=== PATIENT | male | born 1955 | race Caucasian/White ===

== ENCOUNTER → 2017-10-08 09:25 | Outpatient (CLI) | payer OTHER, SELFPAY ==
--- NOTE | 2017-10-08 | DI.CT.S_ITS ---
PROCEDURE: CT UE LT WO CON INDICATIONS: CHRONIC LEFT SHOULDER PAIN TECHNIQUE: Noncontrast 1-1.5 mm thick sections acquired from the acromioclavicular joint to the inferior scapula, with coronal and sagittal reformatting. COMPARISON: None. FINDINGS: Image quality: Excellent. Bones: There are is moderate to severe glenohumeral joint space narrowing with extensive subchondral sclerosis and cystic changes. There is prominent osteophytosis. There is slight superior migration of the humeral head with respect to the glenoid. There is a small joint body inferior to the medial humeral head measuring approximately 5 mm. There is retroversion of the glenoid measuring approximately -15?. There is mild to moderate acromioclavicular joint degeneration. Visualized ribs appear intact. Soft tissues: There is a cystic lesion measuring approximately 2.8 x 2.6 x 2.9 cm in the region of the spinoglenoid notch with associated smooth erosion of the adjacent scapula. The rotator cuff appears grossly intact. There is subtle minimal fatty atrophy of the infraspinatus and teres minor muscles. No fatty atrophy of the supraspinatus or subscapularis. The deltoid appears within normal limits without atrophy. No glenohumeral joint effusion. Visualized left lung demonstrates mild emphysematous changes. IMPRESSION: 1. Moderate to severe osteoarthritic changes of the glenohumeral joint. 2. Glenoid retroversion of approximately -15?. 3. Large cystic lesion in the region of the spinoglenoid notch compatible with a ganglion cyst or paralabral cyst. 4. Minimal fatty atrophy of the infraspinatus may reflect associated mass effect on the suprascapular nerve by the cyst. 5. 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 Dictated by: Jorge Pulliam M.D. on 10/08/2017 at 16:25 Approved by: Jorge Pulliam M.D. on 10/08/2017 at 16:36
== END ==
PROVIDERS: PCP Family Medicine; Visit Provider Orthopaedic Surgery
DX: M19.012 Primary osteoarthritis, left shoulder (principal); M25.512 Pain in left shoulder; G89.29 Other chronic pain
CPT/HCPCS: 73200

== ENCOUNTER 2017-12-08 06:14 | Inpatient (IN) | payer OTHER, SELFPAY ==
[2017-11-26 12:50] VITALS: BMI 34.3
[2017-12-07 11:20] VITALS: BP 103/62; PULSE 116; RESP 14; TEMP 36.3; O2SAT 96
[2017-12-08] VITALS (18 sets, daily range): BP systolic 85–137; BP diastolic 58–86; PULSE 67–127; RESP 10–20; TEMP 35.9–37.1; O2SAT 89–97; BMI 33.5
--- NOTE | 2017-12-08 06:32 | DI.RAD.S_ITS ---
PROCEDURE: XR SHOULDER LT MIN 2V INDICATIONS: prosthesis placement TECHNIQUE: Single AP view of the shoulder were acquired. COMPARISON: None. FINDINGS: Bones: Patient is status post left shoulder arthroplasty. Alignment of the shoulder is anatomic. No gross fracture or dislocation. Soft tissues: No suspicious soft tissue calcifications. IMPRESSION: Post left shoulder arthroplasty with anatomic shoulder alignment. Dictated by: Calvin Perez M.D. on 12/08/2017 at 10:40 Approved by: Calvin Perez M.D. on 12/08/2017 at 10:43
[2017-12-08] MEDS: ACETAMINOPHEN 325 MG TABLET 975 MG PO ×3 (06:51→20:49)
[2017-12-08] MEDS: PREGABALIN 75 MG CAPSULE PO (06:51)
[2017-12-08] MEDS: LACTATED RINGERS 1,000 ML 42 ML IV ×2 (07:07→09:51)
[2017-12-08] MEDS: MIDAZOLAM 2 MG/2 ML VIAL IV (07:33)
[2017-12-08] MEDS: fentaNYL 100 MCG/2 ML INJ 50 MCG IV (07:38)
--- NOTE | 2017-12-08 07:50 | PM.PREOP ---
Pre-operative Note Interval Note Pre-op Check: Yes History & Physical Reviewed by Physician and Yes Exam Performed Changes: No
--- NOTE | 2017-12-08 07:53 | P.OP_ITS ---
Operative Date/Time/Diagnoses Date of procedure: 12/08/17 Time of procedure: 10:10 Pre-op diagnosis: Left shoulder osteoarthritis Post-op diagnosis: same Procedure & Clinicians Procedure: Left total shoulder replacement Same procedure as scheduled: Yes Indications: The patient has had progressively worsening left shoulder pain with radiographic changes consistent with arthritis. Non-operative management has failed and the patient has requested total shoulder replacement. The risks, benefits and alternatives to surgery were discussed with the patient prior to proceeding. Risks discussed included, but were not limited to, failure to relieve pain, stiffness, infection, nerve damage, deep venous thrombosis, pulmonary embolism, stroke, coma, heart attack, permanent paralysis and , as well as the potential need for eventual revision of the prosthetic. Surgeon: Jacob oMntalvo Lead Systems Analyst: Gadeil Reilly Click Yes if Unassisted: No Anesthesia Type: General, Peripheral nerve block and Local Operative Notes Findings: Severe osteoarthritis with type B 2 glenoid and a large paralabral cyst posteriorly which was decompressed. Closure Type: primary Specimen(s): none sent Implants & Drains: Implants used in this procedure were manufactured by the [employer] and included an Altivate short stem shoulder system with a size 16 short humeral stem, a 50 mm x 20 mm neutral humeral head with a neutral neck and a 50 mm all polyethylene pegged E+ glenoid. Applied: drain(s) and implant(s) Estimated Blood Loss (mL): 200 Blood products transfused: none Procedure in detail: The patient was seen in the pre-operative area, where the patient identified the left shoulder as the operative site and this was marked with my initials. The patient received pre-operative antibiotics, underwent an interscalene block, and was taken to the operating room and placed on the operative table in the supine position. After satisfactory anesthesia, a full ? time out? was performed. The patient was repositioned in the ?beach chair? position using a dedicated positioner. All pressure points were well padded, and the knees were slightly bent to prevent tension on the sciatic nerves. The left arm was prepared from the fingers to the base of the neck with ChloroPrep in the usual fashion and draped through sterile drapes. An approximately 15 cm incision was created, starting at the clavicle above the coracoid process and extended towards the deltoid insertion. The deltopectoral interval was used to access the shoulder. Despite careful searching, the cephalic vein was not evident. A self retaining retractor was placed. The upper centimeter of the pectoralis major tendon was released. The ?three sisters? were identified and cauterized. The axillary nerve was palpated and protected throughout the case. The biceps was released from its groove and tenodesed over the top of the pectoralis major tendon. The subscapularis was released from the lesser tuberosity with a subscapularis peel and tagged for later repair. The shoulder was dislocated and a cutting guide was used for the proximal humeral osteotomy in 30 degrees of retroversion. A starter reamer was used followed by the cylindrical reamers. This continued in larger sizes until cortical bite was achieved. Sequential broaching was then performed until a line to line fit with the reamer occurred. A proximal humeral protector was then placed. We then placed retractors to access the glenoid. The subscapularis was released with a ?360 degree release? with care being taken to protect the axillary nerve with the inferior portion of this procedure. The remnant of labrum and biceps stump were removed. The patient's specific glenoid aimer was used, and the guide pin placed. The glenoid was appropriately reamed. The guide for the peripheral holes was used and the center hole enlarged. The trial glenoid was placed with good stability. We then cemented the final implant into place after irrigating the peg holes and drying them with thrombin-soaked Gelfoam. We returned our attention to the humerus, a trial humeral head was applied and a trial reduction performed. Stability was checked with 50% posterior translation with spontaneous reduction, 45? external rotation at the side with the subscapularis held in the repaired position and 70? of internal rotation in the ?scarecrow position?. This was felt to be satisfactory and the appropriate implants were opened. Five holes were drilled along the humeral osteotomy and #2 TiCron sutures placed for eventual subscapularis repair. The humeral prosthetic was impacted into the humerus. The humeral head was applied when the stem was still slightly proud and impacted to both seat the head and fully seat the stem. The joint was relocated one final time. The joint was irrigated and the subscapularis repaired to the previously placed sutures using Len-Mark sutures. The top of the subscapularis was closed to the leading edge of the supraspinatus with a figure of 8 #2 TiCron to close the rotator interval. A deep drain was placed and brought out supero-laterally. The deltopectoral interval was closed with interrupted 0 Vicryl. The subcutaneous layer was closed with 3-0 Vicryl, and the skin with a running 3-0 V-Lock suture and SteriStrips. Additional 0.5% Marcaine was injected into the subcutaneous tissues for postoperative pain control. An Aquacel Ag dressing was applied, the patient?s arm was placed in a sling, and the patient was taken to recovery having tolerated the procedure well. Complications: none Condition: stable Disposition: PACU Plan for aftercare: The patient will be maintained on a standard total shoulder replacement protocol with passive range of motion limited to 90 degrees forward flexion, 0 degrees external rotation at the side, 0 degrees abduction and internal rotation to the body. The patient will receive aspirin and sequential compression devices for DVT prophylaxis. The patient will be discharged home when safe for the home environment, likely tomorrow.
--- NOTE | 2017-12-08 08:00 | SUR.PREOP ---
Block start time [0733] . Monitoring initiated and maintained throughout procedure. Oxygen and medications given per anesthesiologist instructions. Patient remained stable throughout procedure, no adverse reactions noted. Block end time [0752].
--- NOTE | 2017-12-08 08:00 | SUR.PREOP ---
SPOKE WITH MD REGARDING CURRENT ORDER FOR ANCEF RELATED TO PT ALLERGY TO AMPICILLIN. PER MD PRO OK TO CONTINUE WITH CURRENT ORDER OF ANCEF. COMMUNICATED THIS WITH CIRCULATING RN. CELEBREX NOT GIVEN PER PT ALLERGY, ALSO VERIFIED WITH MD. PT TAKEN DIRECTLY INTO THE OR AFTER COMPLETION OF BLOCK. PT TALKING TO STAFF DURING TRANSPORT TO OR.
[2017-12-08] MEDS: CEFAZOLIN 2 GM/100 ML FROZ.PIGGY IV ×2 (08:10→16:24)
--- NOTE | 2017-12-08 08:37 | SUR.OPER ---
Beach chair with Schlein shoulder positioner. Lower body on padded OR bed. Head in foam padded head cradle, secured with straps. Non-operative arm secured <90 degrees abduction. Pillow under knees. Safety belt at thigh. Cloth tape over blanket over lower legs. Gel pad to heels.
[2017-12-08] MEDS: THROMBIN (BOVINE) 5,000 UNIT VIAL 5000 UNIT TOP (08:49)
[2017-12-08] MEDS: BUPIVACAINE 0.5% W/ EPI (PF) VIAL 30 ML INJ (09:24)
[2017-12-08] MEDS: LACTATED RINGERS 1,000 ML 125 ML IV (12:07)
--- NOTE | 2017-12-08 12:24 | PC.NURSE ---
Addendum entered by Leslie Zuniga R.N. 12/08/17 15:23: spoke with marquita in icu pt HR afib rate 120-130's spoke with Dr Streeter notifed of pt HR and placed on tele he requested hospitalist number no further orders at this time. Original Note: Addendum entered by Leslie Zuniga R.N. 12/08/17 14:41: pt continues to have HR 115-125 while at rest. called down to pacu attempt to get ahold of MD or PA. placed on tele at this time. Original Note: Addendum entered by Leslie Zuniga R.N. 12/08/17 13:56: pt got up ambulated to bathroom steady on feet, denies any SOB oxygen 94% RA at this time HR 120, denies chest palpations. Call light within reach and bed alarm for safety Original Note: Addendum entered by Leslie Zuniga R.N. 12/08/17 13:31: Pt sitting up in bed c/o feeling warm states he runs a little warm fan and cool washcloth provided. states he starting to have dull pain to left shoulder but hand and fingers he can feel dull touch, warm to touch and strong pulse. HRR tach 115-123 denies any chest pain or SOB at this time. Call light within reach. Original Note: Day Shift Received Pt from pacu at 1120 via bed is A&Ox3 able to communicate needs. denies any pain or discomfort. Is able to wiggle fingers and feel dull sensation, strong pulse and hand and arm are warm to touch, has aqucel dressing that is CDI and hemo vac that is compressed. ice pack to left shoulder. Denies any nausea and tolerating liquids. LR @ 125ml/hr. HRR denies chest pain, sob and H/A. RT set up home CPAP at bedside, sats 95%2l via cannula. Oriented to room and call light.
--- NOTE | 2017-12-08 14:03 | PT.IPTN ---
Current Diagnoses Other specified mononeuropathies of left upper limb (12/08/17) Primary osteoarthritis, left shoulder (12/08/17) Ganglion, unspecified site (12/08/17) Surgery Performed Operation Date: 12/08/17 07:45 Actual Procedures p Total Shoulder Arthroplasty(Left) - Jacob Montalvo MD Physical Therapy Treatment Note Subjective Physical Therapy Visit Type Type Administrative Note Notes Pt is currently tachycardic and hot, RN requests PT hold the eval right now. Will check back later this afternoon or first thing in the morning. OT eval was also generated via the DCP.
--- NOTE | 2017-12-08 14:06 | SUR.PHASEI ---
pt arrived , bp low, treated with iv fluids, pt asymtomatic, drinking juice, diaphoretic, anesthesia stating he was like this pre op. pt awoke, followed commands, dressing to l shoulder c/d/i, reddish area r of dressing on chest, looks like a bruise but pt stated it has been there a long time.. Brendon to bedside several times to check on pt. pt transfered up to room and left in stable condition.
--- NOTE | 2017-12-08 16:02 | PC.NURSE ---
Addendum entered by Adri North R.N. 12/08/17 16:39: Dr. Mcmillan at bedside with patient, new orders obtained. RT notified regarding EKG. HR decreased spontaneously to mid 50's while EKG in process. GAME TRAPPER notified this RN regarding heart rate pause 5.81 seconds, Dr. Mcmillan made aware. Patient continue awake, reports mild SOB but improved. No chest pain or dizziness. VS 111/67 HR 62 Original Note: Ayla shift note: Patient sleeping between care, arouses easily. HR continues in 120's, DARLENE Reilly consulted with Dr. Mcmillan for medical management. Awaiting for Dr. Mcmillan to see the patient for further orders. Patient asymptomatic, no dizziness, or SOB. No c/o pain or discomfort. Normotensive. O2 sat 95% on RA. CMS intact to LLE. Call light within reach.
--- NOTE | 2017-12-08 16:43 | P.CONS_ITS ---
History of Present Illness Date Patient Seen: 12/08/17 Chief complaint: left total shoulder arthroplasty [id number] Reason for consult: Tachycardia Narrative: Patient is a 62 y/o male with a history of Paroxysmal atrial fibrillation present for 5 years who is s/p left shoulder surgery. Patient took his usual flecanide and metoprolol. Post operatively patient was noted to be tachycardic with a heart rate of 120's and I was asked to assist with management of his rhythm. The patient reports he has been on medical treatment for Paroxsymal atrial fibrillation for years. He was cardioverted previously but returned to atrial fibrillation. He is not always aware of his atrial fibrillation. He currently has no sensation of palpitations. Patient reports shortness of breath with activity. He denies orthopnea or lower extremity edema. He feels short of breath currently. He denies chest pain, palpitations, fever, cough, or prior illness. 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) Syncope (Acute) Surgical History History of cardiac cath (Acute ~03/06/16) History of hernia repair (Acute) History of knee surgery (Acute) History of vasectomy (Acute) Social History household members: spouse Smoking Status: Current every day smoker alcohol intake: current Meds Home Medications Medication Instructions Recorded Confirmed Type aspirin 325 mg PO DAILY 11/26/17 12/08/17 History flecainide 100 mg PO BID 11/26/17 12/08/17 History lisinopril 10 mg PO DAILY 11/26/17 12/08/17 History metoprolol succinate [Toprol XL] 25 mg PO DAILY 11/26/17 12/08/17 History simvastatin 20 mg PO DAILY 11/26/17 12/08/17 History vit C-vit [id number] 1 cap PO DAILY 11/26/17 12/08/17 History [Ocuvite] Allergies Allergy/AdvReac Type Severity Reaction Status Date / Time ampicillin Allergy Itchy Verified 12/08/17 06:46 celecoxib AdvReac Intermediate Stomach Verified 12/08/17 06:46 upset Review of Systems Review of Systems All systems reviewed & are unremarkable except as noted in HPI and below Exam Vital Signs (past 8 hours): - 12/08/17 10:16 12/08/17 10:21 12/08/17 10:26 Temperature 97.0 F L Pulse Rate 110 H 102 H 111 H Respiratory Rate 20 13 16 Blood Pressure 109/65 92/69 85/62 L Pulse Oximetry 89 L 97 95 12/08/17 10:29 12/08/17 10:31 12/08/17 10:41 Temperature Pulse Rate 111 H 110 H 111 H Respiratory Rate 16 14 12 Blood Pressure 95/63 95/62 91/67 Pulse Oximetry 95 94 95 12/08/17 10:51 12/08/17 10:56 12/08/17 11:06 Temperature 97.6 F Pulse Rate 105 H 110 H 109 H Respiratory Rate 10 L 12 11 L Blood Pressure 100/65 90/65 95/62 Pulse Oximetry 94 95 95 12/08/17 11:50 12/08/17 12:20 12/08/17 13:20 Temperature 97.4 F L 97.1 F L 96.9 F L Pulse Rate 120 H 123 H 123 H Respiratory Rate 16 15 16 Blood Pressure 95/65 104/58 L 114/82 Pulse Oximetry 93 94 94 12/08/17 14:25 12/08/17 16:10 12/08/17 16:37 Temperature 96.7 F L 97.0 F L Pulse Rate 127 H 127 H 127 H Respiratory Rate 17 16 Blood Pressure 117/85 105/69 107/77 Pulse Oximetry 94 96 Oxygen Delivery Method Nasal Cannula Oxygen Flow Rate 0 Narrative Exam Narrative: Pleasant male in no acute distress HEENT: NC/AT, EOMI, Oropharynx clear neck supple Lungs: decreased breath sounds but clear to auscultation CV: Tachycardic, irregularly irregular, nl Sl S2 Abd: soft/ non tender/ non distended Ext: no lower extremity edema. Left arm in a sling, drain in place Neuro: non focal Psych: no delusions or hallucinations Skin: on rashes Assessment & Plan (1) Afib: Problem details: Patient initially had a heart rate of 123, Afib, his heart rate is now 57 Current visit: Yes Status: Acute (2) Hypertension: Problem details: blood pressure well controlled Current visit: Yes Status: Acute (3) Obstructive sleep apnea: Problem details: continue CPAP Current visit: Yes Status: Acute (4) Near syncope: Problem details: Patient had a 5 second pause...will continue to follow closely. Will obtain 2 D echo, will hold metoprolol for now. Continue flecanide Current visit: Yes Status: Acute Plan: Assessment/Plan Narrative: As above. Thank You for the consultation, I will continue to follow with you.
--- NOTE | 2017-12-08 16:58 | PT.IPTN ---
Current Diagnoses Obstructive sleep apnea (adult) (pediatric) (12/08/17) Other specified mononeuropathies of left upper limb (12/08/17) Essential (primary) hypertension (12/08/17) Unspecified atrial fibrillation (12/08/17) Primary osteoarthritis, left shoulder (12/08/17) Ganglion, unspecified site (12/08/17) Syncope and collapse (12/08/17) Surgery Performed Operation Date: 12/08/17 07:45 Actual Procedures p Total Shoulder Arthroplasty(Left) - Jacob Montalvo MD Physical Therapy Treatment Note M3 PT-IP Subjective Start: 12/08/17 14:01 Freq: NEEDED Status: Active Protocol: Document 12/08/17 16:56 EA (Rec: 12/08/17 16:57 EA [id number]) Subjective Physical Therapy Visit Type Type Patient Unavailable Notes Patient was checked at 1645 and nurse in charged stated that he is not ready yet due to unstable vital signs.
[2017-12-08 18:31] LABS: Add Manual Diff / Slide Review NO; Basophils Percent Auto 0.1 % (0-2); Hematocrit 43.8 % (41-53); Hemoglobin 14.9 g/dL (13.5-17.5); Lymphocytes Percent Auto 5.7 % (25-40); Mean Corpuscular Hemoglobin 31.7 PG (26-34); Mean Corpuscular Volume 93.1 fL (80-100); Neutrophils Absolute Auto 15500 /uL (3000-5900); Neutrophils Percent Auto 91.2 % (50-75); Platelet Count 272 X10^3/uL (150-400); Red Cell Distribution Width 13.5 % (11.6-14.8)
[2017-12-08 18:47] LABS: Alanine Aminotransferase 31 IU/L (21-72); Albumin 3.9 g/dL (3.5-5.0); Albumin Globulin Ratio 1.4 (1.0-2.8); Alkaline Phosphatase 62 U/L (38-126); Aspartate Aminotransferase 31 IU/L (17-59); BUN Creatinine Ratio 26.4 (6-22); Bilirubin Total 0.5 mg/dL (0.2-1.3); Blood Urea Nitrogen 29 mg/dL (9-20); Calcium 9.6 mg/dL (8.4-10.2); Carbon Dioxide 25 mmol/L (22-32); Chloride 103 mmol/L (98-107); Creatine Kinase 309 U/L (55-170); Estimated Glomerular Filt Rate > 60.0 mL/min (>60); Globulin 2.8 g/dL (1.7-4.1); Glucose 134 mg/dL (80-110); HEMOLYSIS < 15 (0-50); Potassium 4.4 mmol/L (3.4-5.1); Sodium 140 mmol/L (137-145); Total Protein 6.7 g/dL (6.3-8.2)
[2017-12-08 19:02] LABS: CKMB % Relative Index 2.1 % (1.5-5.0); Creatine Kinase MB 6.36 ng/mL (<2.37)
[2017-12-08 19:05] LABS: Troponin I < 0.012 ng/mL (0.01-0.034)
[2017-12-08] MEDS: FLECAINIDE 100 MG TABLET PO (20:49)
[2017-12-08] MEDS: DOCUSATE 100 MG CAPSULE PO (20:49)
[2017-12-09] VITALS: O2SAT 96
[2017-12-09] MEDS: CEFAZOLIN 2 GM/100 ML FROZ.PIGGY IV (00:29)
[2017-12-09 00:47] VITALS: BP 131/77; PULSE 67; RESP 20; TEMP 36.6; O2SAT 96
[2017-12-09] MEDS: OXYCODONE IR 5 MG TABLET PO ×4 (05:02→12:49)
[2017-12-09 05:10] VITALS: BP 143/89; PULSE 68; RESP 18; TEMP 36.7; O2SAT 99
[2017-12-09 07:06] LABS: Hematocrit 41.7 % (41-53); Hemoglobin 14.2 g/dL (13.5-17.5)
[2017-12-09 07:30] VITALS: BP 159/81; PULSE 71; RESP 18; TEMP 36.7; O2SAT 98
[2017-12-09] MEDS: HYDROMORPHONE 2 MG INJ 0.5 MG IV (07:48)
--- NOTE | 2017-12-09 07:54 | PM.DS.1 ---
History of Present Illness Date Patient Seen: 12/09/17 Time Patient Seen: 07:54 Chief complaint: left total shoulder arthroplasty [id number] Narrative: History of present illness and physical examination is contained in the chart previously completed note. Please refer to that note for this information. Discharge Providers Date of admission: 12/08/17 06:14 Primary care physician: Jermain Joseph MD Consults: 12/08/17 11:27 Consult to Discharge Planning Routine Comment: Consult to Physical Therapy Evaluate & Treat Comment: PROM 90 FF, ER 0, IR to body, Abd 0. Pendulums OK Physician Instructions: Evaluate and Treat 12/08/17 13:35 Consult to Occupational Therapy Evaluate & Treat Comment: Physician Instructions: Evaluate and treat Discharge provider: Jacob Montalvo MD Discharge Date: 12/09/17 Summary Discharge Diagnosis: 1. Left shoulder osteoarthritis 2. Cardiac arrhythmia Hospital Course: The patient was admitted to the hospital and taken directly to the operating room on December 08, 2017 where he underwent a left total shoulder replacement without complications. During his recovery phase he was noted to be tachycardic and given his cardiac history and medical consultation was obtained. He was monitored on telemetry. He was stable on postoperative day 1 and felt to be ready for discharge home. Status at Discharge Cognitive/behavioral status at discharge: Baseline Functional status at discharge: independent ambulation Overall status at discharge: patient is progressing back to baseline Time Spent with Patient Less than 30 minutes Exam Vital Signs (past 8 hours): - 12/09/17 00:00 12/09/17 00:47 12/09/17 05:10 Temperature 97.9 F 98.1 F Pulse Rate 67 68 Respiratory Rate 20 18 Blood Pressure 131/77 143/89 H Pulse Oximetry 96 96 99 Oxygen Delivery Method Room Air,CPAP Oxygen Flow Rate 0 Narrative Exam Narrative: Left shoulder wound is dressed with minimal drainage on the bandage. Light touch is intact in the radial, ulnar, median, musculocutaneous and axillary nerve distributions. He can extend his thumb, abduct his thumb, abduct his fingers. He can fire his biceps and deltoid. Objective Labs Result Diagrams: 12/09/17 06:55 12/08/17 17:28 Labs: Laboratory Results - last 24 hr 12/08/17 12/08/17 12/09/17 17:28 17:28 06:55 WBC 17.0 H RBC 4.70 Hgb 14.9 14.2 Hct 43.8 41.7 MCV 93.1 MCH 31.7 MCHC 34.0 RDW 13.5 Plt Count 272 Neut % (Auto) 91.2 H Lymph % (Auto) 5.7 L Mcduffie % (Auto) 3.0 Eos % (Auto) 0.0 L Baso % (Auto) 0.1 Neut # (Auto) 80374 H Sodium 140 Potassium 4.4 Chloride 103 Carbon Dioxide 25 BUN 29 H Creatinine 1.10 Estimated GFR > 60.0 BUN/Creatinine Ratio 26.4 H Glucose 134 H Calcium 9.6 Total Bilirubin 0.5 AST 31 ALT 31 Alkaline Phosphatase 62 Total Creatine Kinase 309 H CK-MB (CK-2) 6.36 H CK-MB (CK-2) Rel Index 2.1 Troponin I < 0.012 B-Natriuretic Peptide 156.0 H Total Protein 6.7 Albumin 3.9 Globulin 2.8 Albumin/Globulin Ratio 1.4 Discharge Plan Discharge Plan Patient Disposition: Home Discharge Med Rec/Prescriptions Prescriptions: New oxycodone 5 mg Tablet 5 mg PO Q3HR PRN (Reason: Pain, Moderate (4-6)) Qty: 60 RF: 0 acetaminophen 325 mg Tablet 975 mg PO TID 21 Days Qty: 189 RF: 0 Continue aspirin 325 mg Tablet 325 mg PO DAILY RF: 0 simvastatin 20 mg Tablet 20 mg PO DAILY RF: 0 lisinopril 10 mg Tablet 10 mg PO DAILY RF: 0 metoprolol succinate [Toprol XL] 25 mg Tablet Extended Release 24 Hr 25 mg PO DAILY RF: 0 flecainide 100 mg Tablet 100 mg PO BID RF: 0 vit C-vit [id number]-3 [Ocuvite] [id number]-[id number]-mg Capsule 1 cap PO DAILY RF: 0 Follow up/Referrals: Jermain Joseph MD [Primary Care Provider] - Jacob Montalvo MD [Physician] - 2 Weeks Provider Discharge Instructions Diet: Diet as Tolerated Activity: You may move your hand in front of your torso. Do pendulum exercises as taught by PT. Cold/Heat Therapy: Apply ice to left shoulder for 15 minutes every hour as needed. Other treatments: Keep your arm in the sling except for hygiene and pendulum exercises for two weeks. Skin/Wound/Dressing Care Report to your healthcare provider any signs of infection, such as:: chills, fever, night sweats, increased pain and unusual drainage Dressing: Leave the dressing intact until follow up. You may shower with the dressing in place. If the central slip of the dressing gets wet with water or if it is saturated with blood, please call the office. Discharge Data Primary Care Provider: Jermain Joseph Attending Provider: Jacob Montalvo Admit Date/Time: 12/08/17 06:14 Quality VTE Deep Vein Thrombosis/Pulmonary Embolism Present on Admission: No
--- NOTE | 2017-12-09 07:59 | P.DS_ITS ---
History of Present Illness Date Patient Seen: 12/09/17 Time Patient Seen: 07:54 Chief complaint: left total shoulder arthroplasty [id number] Narrative: History of present illness and physical examination is contained in the chart previously completed note. Please refer to that note for this information. Discharge Providers Date of admission: 12/08/17 06:14 Primary care physician: Jermain Joseph MD Consults: 12/08/17 11:27 Consult to Discharge Planning Routine Comment: Consult to Physical Therapy Evaluate & Treat Comment: PROM 90 FF, ER 0, IR to body, Abd 0. Pendulums OK Physician Instructions: Evaluate and Treat 12/08/17 13:35 Consult to Occupational Therapy Evaluate & Treat Comment: Physician Instructions: Evaluate and treat Discharge provider: Jacob Montalvo MD Discharge Date: 12/09/17 Summary Discharge Diagnosis: 1. Left shoulder osteoarthritis 2. Cardiac arrhythmia Hospital Course: The patient was admitted to the hospital and taken directly to the operating room on December 08, 2017 where he underwent a left total shoulder replacement without complications. During his recovery phase he was noted to be tachycardic and given his cardiac history and medical consultation was obtained. He was monitored on telemetry. He was stable on postoperative day 1 and felt to be ready for discharge home. Status at Discharge Cognitive/behavioral status at discharge: Baseline Functional status at discharge: independent ambulation Overall status at discharge: patient is progressing back to baseline Time Spent with Patient Less than 30 minutes Exam Vital Signs (past 8 hours): - 12/09/17 00:00 12/09/17 00:47 12/09/17 05:10 Temperature 97.9 F 98.1 F Pulse Rate 67 68 Respiratory Rate 20 18 Blood Pressure 131/77 143/89 H Pulse Oximetry 96 96 99 Oxygen Delivery Method Room Air,CPAP Oxygen Flow Rate 0 Narrative Exam Narrative: Left shoulder wound is dressed with minimal drainage on the bandage. Light touch is intact in the radial, ulnar, median, musculocutaneous and axillary nerve distributions. He can extend his thumb, abduct his thumb, abduct his fingers. He can fire his biceps and deltoid. Objective Labs Result Diagrams: 12/09/17 06:55 12/08/17 17:28 Labs: Laboratory Results - last 24 hr 12/08/17 12/08/17 12/09/17 17:28 17:28 06:55 WBC 17.0 H RBC 4.70 Hgb 14.9 14.2 Hct 43.8 41.7 MCV 93.1 MCH 31.7 MCHC 34.0 RDW 13.5 Plt Count 272 Neut % (Auto) 91.2 H Lymph % (Auto) 5.7 L [place] % (Auto) 3.0 Eos % (Auto) 0.0 L Baso % (Auto) 0.1 Neut # (Auto) 53955 H Sodium 140 Potassium 4.4 Chloride 103 Carbon Dioxide 25 BUN 29 H Creatinine 1.10 Estimated GFR > 60.0 BUN/Creatinine Ratio 26.4 H Glucose 134 H Calcium 9.6 Total Bilirubin 0.5 AST 31 ALT 31 Alkaline Phosphatase 62 Total Creatine Kinase 309 H CK-MB (CK-2) 6.36 H CK-MB (CK-2) Rel Index 2.1 Troponin I < 0.012 B-Natriuretic Peptide 156.0 H Total Protein 6.7 Albumin 3.9 Globulin 2.8 Albumin/Globulin Ratio 1.4 Discharge Plan Discharge Plan Patient Disposition: Home Discharge Med Rec/Prescriptions Prescriptions: New oxycodone 5 mg Tablet 5 mg PO Q3HR PRN (Reason: Pain, Moderate (4-6)) Qty: 60 RF: 0 acetaminophen 325 mg Tablet 975 mg PO TID 21 Days Qty: 189 RF: 0 Continue aspirin 325 mg Tablet 325 mg PO DAILY RF: 0 simvastatin 20 mg Tablet 20 mg PO DAILY RF: 0 lisinopril 10 mg Tablet 10 mg PO DAILY RF: 0 metoprolol succinate [Toprol XL] 25 mg Tablet Extended Release 24 Hr 25 mg PO DAILY RF: 0 flecainide 100 mg Tablet 100 mg PO BID RF: 0 vit C-vit [id number] [Ocuvite] [id number]-[id number]-mg Capsule 1 cap PO DAILY RF: 0 Follow up/Referrals: Jermain Joseph MD [Primary Care Provider] - Jacob Montalvo MD [Physician] - 2 Weeks Provider Discharge Instructions Diet: Diet as Tolerated Activity: You may move your hand in front of your torso. Do pendulum exercises as taught by PT. Cold/Heat Therapy: Apply ice to left shoulder for 15 minutes every hour as needed. Other treatments: Keep your arm in the sling except for hygiene and pendulum exercises for two weeks. Skin/Wound/Dressing Care Report to your healthcare provider any signs of infection, such as:: chills, fever, night sweats, increased pain and unusual drainage Dressing: Leave the dressing intact until follow up. You may shower with the dressing in place. If the central slip of the dressing gets wet with water or if it is saturated with blood, please call the office. Discharge Data Primary Care Provider: Jermain Joseph Attending Provider: Jacob Montalvo Admit Date/Time: 12/08/17 06:14 Quality VTE Deep Vein Thrombosis/Pulmonary Embolism Present on Admission: No
[2017-12-09] MEDS: ACETAMINOPHEN 325 MG TABLET 975 MG PO (08:04)
[2017-12-09] MEDS: DOCUSATE 100 MG CAPSULE PO (08:05)
[2017-12-09] MEDS: ASPIRIN 325 MG TABLET PO (08:05)
[2017-12-09] MEDS: LISINOPRIL 10 MG TABLET PO (08:05)
[2017-12-09] MEDS: FLECAINIDE 100 MG TABLET PO (08:05)
[2017-12-09 08:08] VITALS: O2SAT 97
--- NOTE | 2017-12-09 10:40 | PT.IPNOTE ---
ACUTE PT UPDATE Holding PT eval at this time, pt awaiting ECHO. Also will wait for OT to evaluate the patient first to see if there are PT needs.
--- NOTE | 2017-12-09 11:02 | PC.NURSE ---
Day shift: Bry-vac removed at approx 1045. Tolerated well. Cath intact. Emptied prior to removal. HAd 20mls serosang fluid.
[2017-12-09 11:35] VITALS: BP 110/63; PULSE 69; RESP 18; TEMP 36.7; O2SAT 97
--- NOTE | 2017-12-09 12:36 | OT.IP.EVAL ---
Current Diagnoses Obstructive sleep apnea (adult) (pediatric) (12/08/17) Other specified mononeuropathies of left upper limb (12/08/17) Essential (primary) hypertension (12/08/17) Unspecified atrial fibrillation (12/08/17) Primary osteoarthritis, left shoulder (12/08/17) Ganglion, unspecified site (12/08/17) Syncope and collapse (12/08/17) Surgery Performed Operation Date: 12/08/17 07:45 Actual Procedures p Total Shoulder Arthroplasty(Left) - Jacob Montalvo MD Past Medical History (Last Reviewed 12/08/17 @ 16:46 by Alisia Mcmillan MD) Arthritis (Acute) Asthma (Acute) BPH (benign prostatic hyperplasia) (Acute) Constipation (Acute) Dizziness (Acute) Ganglion cyst (Acute) History of bronchitis (Acute) Hyperlipidemia (Acute) Hypertension (Acute) Hypotension (Acute) Murmur (Acute) Osteoarthritis of left shoulder (Acute) Overweight (Acute) Paroxysmal A-fib (Acute) Pre-diabetes (Acute) SOB (shortness of breath) (Acute) Sleep apnea with use of continuous positive airway pressure (CPAP) (Acute) Slow urinary stream (Acute) 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) Syncope (Acute) Surgical History (Last Reviewed 12/08/17 @ 16:46 by Alisia Mcmillan MD) History of cardiac cath (Acute ~03/06/16) History of hernia repair (Acute) History of knee surgery (Acute) History of vasectomy (Acute) Occupational Therapy Inpatient Evaluation/Re-Eval M1 PT/OT-IP Prior Functional Status Start: 12/10/17 15:22 Freq: NEEDED Status: Active Protocol: Document 12/09/17 12:36 ROSA (Rec: 12/10/17 15:39 ROSA [id number]) Medical Review Prior Functional Status Medical History Reviewed Yes Diet/Fluid Consistency Regular Communication WNL Mobility and Gait Independent without a device Activities of Daily Living and IADL's Independent but limited by L shoulder pain Prior Functional Level (Other details) 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 Social History Household Members spouse Living Arrangements House Number of Floors (Floors) One Floor Number of Stairs To Enter/Railing? 3 stairs to enter, no rail Home Environment Standard Height Toilet Tub/Shower Employment Status [employer] Employed Additional Social History Comment Supportive, capable can provide 24 hr assist at d/c M2 OT-IP Current Condition Start: 12/10/17 15:22 Freq: Status: Active Protocol: Document 12/09/17 12:36 PJM (Rec: 12/10/17 15:39 [facility] [id number]) Occupational Therapy Current Condition Current Condition Evaluation Date 12/09/17 Treatment Diagnosis decreased self care after L TSA Diagnosis Onset Date 12/08/17 Post Operative Precautions Shoulder Precautions Sling Internal Rotation to Body No External Rotation No Abduction Forward Flexion to 90 degrees Pendulums Weight Bearing Status Weight Bearing Status Non-Weight Bearing Allowed Weight Bearing Amount (enter % LUE or #) (%) M3 OT- IP Subjective and Pain Start: 12/10/17 15:22 Freq: Status: Active Protocol: Document 12/09/17 12:36 PJM (Rec: 12/10/17 15:39 PJ [id number]) OT- Subjective Occupational Therapy Visit Type Type Initial Evaluation Visit Start Time 12:03 Visit Stop Time 12:36 Total Visit Minutes 33 Notes Pt's here for education today. Occupational Therapy Visit Comments Patient Comments I am ready to go home Patient/Caregiver Goals to return to work in 2 weeks OT Pain Assessment Pain When Pain Assessed After Treatment Pain Present Pain Present Pain Reported Location Right Shoulder Intensity 4 Scale Used Numeric (1 - 10) Description Aching Acute M4 OT- IP ADL's Start: 12/10/17 15:22 Freq: Status: Active Protocol: Document 12/09/17 12:36 PJM (Rec: 12/10/17 15:39 [facility] [id number]) OT [id number] General Evaluation Self-Feeding Ability Independent Comments OT Self-Feeding Comments using dominant R hand, needs set up to open containers, cut food OT ADL-Grooming General Evaluation Grooming Ability Independent Comments OT Grooming Comments standing at sink using L hand as assist within sling OT ADL-Oral Care General Eval Oral Care Ability Independent Comments Oral Care Comments standing OT ADL-Dressing General Eval Upper Body Dressing Ability Moderate Assistance Lower Body Dressing Ability Minimal Assistance Areas Needing Assistance Underpants/Brief Pants/Shorts Socks Comments OT Dressing Comments Provided education to pt / re: dressing techniques within L TSA precautions and donning and doffing L sling. able to assist pt appropriately with all dressing. OT ADL-Toileting General Evaluation Toileting Ability Independent OT ADL-Bathing Comments OT Bathing Comments Pt declined to shower here. Provided education to pt/ re: safe technique for showering/drying within L TSA precautions. Pt plans to stand to shower in tub shower combo with assist from PRN. M5 OT- IP IADL's Start: 12/10/17 15:22 Freq: Status: Active Protocol: Document 12/09/17 12:36 PJ (Rec: 12/10/17 15:39 [facility] [id number]) OT-Instrumental Activities of Daily Living Deficits IADL Deficits Identified Deficits Home Safety Awareness Awareness of Need for Assistance at Home Good Awareness Ability to Problem Solve Emergency Able to Problem Solve Situations Medication Management Medication Management No Deficits Identified Money Management Money Management No Deficits Identified Meal Preparation Meal Preparation Caregiver Provides Assist Meal Preparation Comments to assist PRN High Rigger High Rigger Caregiver Provides Assist High Rigger Comments to assist PRN Driving Driving Caregiver Provides Assist Driving Comments to assist until pt able M6 OT- IP Functional Cognition Start: 12/10/17 15:22 Freq: Status: Active Protocol: Document 12/09/17 12:36 PJM (Rec: 12/10/17 15:39 [facility] [id number]) Cognitive Factors Limiting Selfcare Function Cognitive Ability Level of Alertness Alert Patient Orientation Name Age Birthday Month Date Year Day of Week Place Situation Attention Span Ability Capable of Focused Attention Capable of Sustained Attention Ability to Follow Commands Able to Follow One Step Commands Able to Follow Multi-Step Commands Memory Description No Deficits Noted Safety Awareness No Deficits Noted Problem Solving Ability No deficits Noted Executive Function Ability No Deficits Noted Abstract Thinking Ability No Deficits Noted Cognitive Comments Cognitive Assessment Comments Pt verbalizes and demonstrates understanding of all education and L TSA precautions. OT- Vision and Hearing OT- Hearing Assessment OT- Hearing Assessment WFL OT- Vision Assessment Visual Acuity WFL Glasses All The Time Vision Assessment Comments pt denies any recent changes M7 OT- IP Mobility and Balance Start: 12/10/17 15:22 Freq: Status: Active Protocol: Document 12/09/17 12:36 PJM (Rec: 12/10/17 15:39 [facility] [id number]) OT- Bed Mobility Assessment Rolling Type of Rolling Roll to Right Level of Assistance Standby Assistance Supine to Sit Supine to Sit Assist Standby Assistance Scooting Scooting to Edge of Bed Independent OT-Transfer Assessment Sit to and From Stand Sit to and from Stand Independent Transfers Transfer Ability Independent Technique Transfer Destination Car Chair Shower Stall Toilet Transfer Technique Stand Step Pivot Devices Transfer Assistive Devices None Comments Mobility Comments Pt plans to sleep in recliner initially. OT- Gait Assessment Gait Gait Assistance Required: Independent Distance (Feet) 200 Able to Maintain Weight Bearing Status Yes During Gait Assistive Devices Assistive Device None Comments Gait Ability Comments Pt up in room ad jose and walked in roy without a device and no deficits noted; pt requesting to try 3 stairs as no P.T. available and pt ready for d/c. Pt independent going up and down 3 stairs with no loss of balance noted. OT- Balance Assessment Sitting Balance and Reactions Static Sitting Balance Ability Good Dynamic Sitting Balance Ability Good Standing Balance and Reactions Static Standing Balance Ability Good Dynamic Standing Balance Ability Good M8 OT- IP Objective Assessments Start: 12/10/17 15:22 Freq: Status: Active Protocol: Document 12/09/17 12:36 PJM (Rec: 12/10/17 15:39 PJM [id number]) OT Gross Range of Motion Upper Extremity Range of Motion Assessment Left Impaired ROM Impairments LUE: Provided education, demo and written handout re: L shoulder pendulum ex in standing and pt verbalizes understanding. Pt educated re: no active abduction, external rotation to neutral, internal rotation to body and passive shoulder flex to 90 via pendulums only. He verbalizes understanding. Distal AROM WFL in L elbow,forearm, wrist and hand. Pt educated re: AROM ex for L shoulder, forearm, wrist, fingers when sling off for dressing or shower. RUE WNL OT Strength Upper Extremity Strength Assessment Left Impaired Hand Support Assistant Strength Hand Dominance Right Comments Strength Comments RUE: WNL LUE: NT due to recent surgery except L finisher polisher WFL OT- Coordination Assessment Comments Coordination Comments LUE functional use limited by sling. RUE WNL OT-Muscle Tone Assessment Muscle Tone WNL Yes OT Sensation Assessment Comments Summary Comments BUE intact Edema Edema Present Edema Comments Min edema noted in L fingers. Pt educated re: fist pumping 10x every hour while awake. M9 OT- IP Assessment and Plan Start: 12/10/17 15:22 Freq: Status: Active Protocol: Document 12/09/17 12:36 PJM (Rec: 12/10/17 15:39 PJM [id number]) OT Summary Assessment and Plan Potential Rehabilitation Potential Excellent Analytic Complexity at Evaluation Low Summary OT Impairments Pain Range of Motion Strength Coordination Progress Towards Goals Safe For Discharge Goals Met Assessment Summary Low complexity OT assessment and all OT education completed with pt/ re: L TSA precautions, LUE pendulums and distal AROM ex, and adapted ADL skills. Pt/ verbalize understanding and supportive, capable will provide 24 hr assist to pt after d/c. Pt to d/c home today. No further OT services needed. Frequency of Treatment Frequency Of Treatment Discharge Discharge Recommendations OT Discharge Recommendations Home with 24/7 Assist Home Equipment Needs none
--- NOTE | 2017-12-09 12:38 | PT.IPNOTE ---
ACUTE PT UPDATE Pt has no acute physical therapy needs at this time. OT has cleared pt for discharge to home. Acute PT will sign off.
--- NOTE | 2017-12-09 12:52 | PC.NURSE ---
Day shift: Left unit at approx 1300. Ambulated with FRONT MAN and his spouse to private care. Paperwork signed and questions answered. Pt has all personal belongings.
== END 2017-12-09 12:52 | disposition home or self-care (01) | DRG 483 ==
PROVIDERS: Internal Medicine; Admitting Provider Orthopaedic Surgery; PCP Family Medicine; Visit Provider Orthopaedic Surgery
PROC: 0RRK0JZ Replacement of Left Shoulder Joint with Synthetic Substitute, Open Approach (ICD-10-PCS; CPT 23472; principal; 2017-12-08 07:45)
DX: M19.012 Primary osteoarthritis, left shoulder (principal); G47.33 Obstructive sleep apnea (adult) (pediatric); R73.03 Prediabetes; I48.0 Paroxysmal atrial fibrillation; I10 Essential (primary) hypertension; I25.10 Atherosclerotic heart disease of native coronary artery without angina pectoris; F17.210 Nicotine dependence, cigarettes, uncomplicated
CPT/HCPCS: 36415; 64450; 73030; 80053; 82550; 82553; 83880; 84484; 85014; 85018; 85025; 93005; 97165; 97535; 99406; C1776; J0690; J1100; J1170; J2250; J2405; J2704; J3010